=== PATIENT | female | born 1990 | race Caucasian/White ===

== ENCOUNTER 2016-10-29 14:05 | Emergency (ER) | payer BC, OTHER ==
[~2016-10-29] VITALS: Ht 160 cm; Wt 100.0 kg
[~2016-10-29 14:05] MED LIST: CLON.5 PO; IBUP-232 PO; METO25TA3 PO; OMEP20TA PO; VITA500015 PO; ZANTTAB PO; ZOFR4TAB3 SL
[2016-10-29 14:15] VITALS: BP 121/93; PULSE 122; RESP 16; TEMP 98.2; O2SAT 98
[2016-10-29] MEDS ORDERED: SODIUM CHLOR 0.9% 1000 ML INJ 1,000 ML IV ONE ×2 (14:49→16:00)
[2016-10-29] MEDS ORDERED: CLON1 PO (14:49)
[2016-10-29] MEDS ORDERED: [UNRECOGNIZED DRUG - OTHER] (14:49)
[2016-10-29 15:00] LABS: BLOOD, URINE TRACE (NEG); GLUCOSE,URINE NEG (NEG); KETONE, URINE NEG (NEG); NITRITE,URINE NEG (NEG)
[2016-10-29] MEDS ORDERED: SODIUM CHLORIDE 0.9% FLUSH 5 ML FLUSH IVF PRN (15:00)
[2016-10-29] MEDS ORDERED: ONDANSETRON HCL 4 MG/2 ML VIAL IVP ONE (15:00)
--- NOTE | 2016-10-29 15:02 | PD ---
HPI Chief Complaint: GI Complaint Time Seen by Provider: 14:57 Travel History International Travel<30 days: No Contact w/Intl Traveler<30days: No Traveled to known affect area: No History of Present Illness HPI Patient is a 26-year-old female presenting to the emergency room for evaluation of nausea, vomiting, diarrhea. Patient states her symptoms started last night. She denies any abdominal pain, fevers, chills. Patient is recently on 2 and half weeks worth of oral antibiotic therapy due to enlarged tonsils. She stopped the antibiotics approximately one week ago. She states that she has felt nauseated for the last week but the vomiting and diarrhea started yesterday. She states she feels weak and shaky. PFSH Past Medical History Anemia: Yes (BORDERLINE) Anxiety: Yes Depression: Yes Diminished Hearing: No Ulcer: Yes ?: Not LMP: 2 weeks ago : 0 Family History Family Hypercholesterolemia: Yes (FATHER) Social History Alcohol Use: Yes (every other day beer) Tobacco Use: No Substance Use: No Allergies-Medications (Allergen,Severity, Reaction): Coded Allergies: No Known Allergies (Verified , 10/29/16) Reported Meds & Prescriptions Reported Meds & Active Scripts Active Reported [Med For Hr] Klonopin (Clonazepam) 1 Mg Tab 1 Mg PO BID Review of Systems Except as stated in HPI: all other systems reviewed are Neg General / Constitutional: No: Fever, Chills HENT: No: Headaches, Congestion Cardiovascular: No: Chest Pain or Discomfort Respiratory: No: Shortness of Breath Gastrointestinal: Positive: Nausea, Vomiting, Diarrhea, No: Abdominal Pain Genitourinary: No: Dysuria Musculoskeletal: No: Myalgias Neurologic: Positive: Weakness, No: Dizziness, Syncope Physical Exam Narrative GENERAL: Overweight, well-developed, alert female. Resting comfortably in no acute distress. SKIN: Warm and dry. HEAD: Atraumatic. Normocephalic. EYES: Pupils equal and round. No scleral icterus. No injection or drainage. ENT: No nasal bleeding or discharge. Mucous membranes pink and moist. NECK: Trachea midline. No JVD. CARDIOVASCULAR: Regular rate and rhythm. No murmur appreciated. RESPIRATORY: No accessory muscle use. Clear to auscultation. Breath sounds equal bilaterally. GASTROINTESTINAL: Abdomen soft, non-tender, nondistended. Hepatic and splenic margins not palpable. Positive Bowel sounds, no rebound, no guarding. MUSCULOSKELETAL: No obvious deformities. No clubbing. No cyanosis. No edema. NEUROLOGICAL: Awake and alert. No obvious cranial nerve deficits. Motor grossly within normal limits. Normal speech. PSYCHIATRIC: Appropriate mood and affect; insight and judgment normal. Data Data Last Documented VS Vital Signs Date Time Temp Pulse Resp B/P Pulse Ox O2 Delivery O2 Flow Rate FiO2 10/29/16 14:15 98.2 122 16 121/93 98 Orders Urinalysis - C+S If Indicated (10/29/16 14:30) Complete Blood Count With Diff (10/29/16 14:49) Comprehensive Metabolic Panel (10/29/16 14:49) Lipase (10/29/16 14:49) Iv Access Insert/Monitor (10/29/16 14:49) Ondansetron Inj (Zofran Inj) (10/29/16 15:00) Sodium Chlor 0.9% 1000 Ml Inj (Ns 1000 M (10/29/16 14:49) Sodium Chloride 0.9% Flush (Ns Flush) (10/29/16 15:00) Ed Urine Pregnancytest Poc (10/29/16 14:49) C Diff Toxin Pcr (10/29/16 15:09) Sodium Chlor 0.9% 1000 Ml Inj (Ns 1000 M (10/29/16 16:00) Dicyclomine Inj (Bentyl Inj) (10/29/16 16:15) Labs Laboratory Tests Test 10/29/16 10/29/16 14:50 15:00 Urine Collection Type CLEAN CATCH Urine Color YELLOW Urine Turbidity CLEAR Urine pH 6.0 Urine Specific [place] 1.025 Urine Protein 30 mg/dL Urine Glucose (UA) NEG mg/dL Urine Ketones NEG mg/dL Urine Occult Blood TRACE Urine Nitrite NEG Urine Bilirubin NEG Urine Leukocyte Esterase NEG Urine WBC 0-2 /hpf Urine Squamous Epithelial > 8 /hpf Cells Urine Mucus FEW /lpf Urine Yeast (Budding) OCC Microscopic Urinalysis Comment CULT NOT INDICATED Urine Collection Time 14:50 White Blood Count 9.2 TH/MM3 Red Blood Count 4.69 MIL/MM3 Hemoglobin 13.4 GM/DL Hematocrit 39.8 % Mean Corpuscular Volume 84.8 FL Mean Corpuscular Hemoglobin 28.6 PG Mean Corpuscular Hemoglobin 33.7 % Concent Red Cell Distribution Width 12.7 % Platelet Count 286 TH/MM3 Mean Platelet Volume 7.6 FL Neutrophils (%) (Auto) 76.7 % Lymphocytes (%) (Auto) 15.5 % Monocytes (%) (Auto) 7.2 % Eosinophils (%) (Auto) 0.1 % Basophils (%) (Auto) 0.5 % Neutrophils # (Auto) 7.1 TH/MM3 Lymphocytes # (Auto) 1.4 TH/MM3 Monocytes # (Auto) 0.7 TH/MM3 Eosinophils # (Auto) 0.0 TH/MM3 Basophils # (Auto) 0.0 TH/MM3 CBC Comment DIFF FINAL Differential Comment Sodium Level 142 MEQ/L Potassium Level 3.9 MEQ/L Chloride Level 105 MEQ/L Carbon Dioxide Level 27.3 MEQ/L Anion Gap 10 MEQ/L Blood Urea Nitrogen 16 MG/DL Creatinine 0.91 MG/DL Estimat Glomerular Filtration 74 ML/MIN Rate Random Glucose 96 MG/DL Calcium Level 8.8 MG/DL Total Bilirubin 0.3 MG/DL Aspartate Amino Transf 16 U/L (AST/SGOT) Alanine Aminotransferase 47 U/L (ALT/SGPT) Alkaline Phosphatase 60 U/L Total Protein 8.9 GM/DL Albumin 3.9 GM/DL Lipase 102 U/L [facility] Medical Decision Making Medical Screen Exam Complete: Yes Emergency Medical Condition: Yes Interpretation(s) Vital Signs Date Time Temp Pulse Resp B/P Pulse Ox O2 Delivery O2 Flow Rate FiO2 10/29/16 14:15 98.2 122 16 121/93 98 Differential Diagnosis Gastroenteritis versus colitis versus C. difficile versus viral syndrome versus obstruction versus other Narrative Course Patient is a 26-year-old female presenting to the emergency department for evaluation of nausea, vomiting, diarrhea. Labs ordered and pending, IV fluids, Zofran ordered. Stool study ordered and pending. CBC is unremarkable, chemistry is unremarkable, urinalysis is not indicative of urinary tract infection, stool cultures are pending. Patient was given Zofran in the emergency department, she has not had any further vomiting. Bentyl ordered for abdominal cramping. Patient tolerated by mouth challenge. Patient was advised that she would be notified if stool was positive for CDT. Patient has appointment with her primary doctor in the morning, she was encouraged to keep this appointment. Due to current return to emergency department for any new or worsening symptoms. Patient's heart rate was reassessed at 88 prior to discharge. Diagnosis Primary Impression: Nausea vomiting and diarrhea Referrals: Primary Care Physician 1 day Patient Instructions: Acute Diarrhea (GEN), Acute Nausea and Vomiting (ED), General Instructions Additional Instructions: Follow-up with your primary doctor Maintain adequate fluid intake Berkley, low residue diet until symptoms improve Return to emergency department for any new or worsening symptoms Med/Other Pt SpecificInfo: Prescription(s) given Scripts Dicyclomine (Bentyl)20 Mg Tab20 Mg PO TID PRN (Bowel Management) 3 Days Ref 0 Prov:Laurence Mcdowell 10/29/16 Ondansetron Odt (Zofran Odt)4 Mg Tab4 Mg SL Q6HR PRN (Nausea/Vomiting) 3 Days Ref 0 Prov:Laurence Mcdowell 10/29/16 Disposition: 01 DISCHARGE HOME Condition: Stable Laurence Mcdowell Oct 29, 2016 15:01
[2016-10-29 15:12] LABS: AUTOMATED NEUTROPHIL # 7.1 TH/MM3 (1.8-7.7); BASOPHIL % 0.5 % (0.0-2.0); EOSINOPHIL % 0.1 % (0.0-4.0); HEMATOCRIT 39.8 % (35.0-46.0); HEMO FLAGS DIFF FINAL; LYMPH % 15.5 % (9.0-44.0); LYMPHOCYTE # 1.4 TH/MM3 (1.0-4.8); MEAN CELL VOLUME 84.8 FL (80.0-100.0); MEAN CORPUSCULAR HEMOGLOBIN 28.6 PG (27.0-34.0); MEAN CORPUSCULAR HGB CONC 33.7 % (32.0-36.0); MONO % 7.2 % (0.0-8.0); NEUT % 76.7 % (16.0-70.0); PLATELET COUNT 286 TH/MM3 (150-450); RED BLOOD COUNT 4.69 MIL/MM3 (4.00-5.30); RED CELL DISTRIBUTION WIDTH 12.7 % (11.6-17.2); WHITE BLOOD COUNT 9.2 TH/MM3 (4.0-11.0)
[2016-10-29 15:14] LABS: METHOD OF COLLECTION CLEAN CATCH; URINE COLOR YELLOW (YELLW/STRAW)
[2016-10-29 15:15] LABS: MUCUS URINE FEW /lpf (OCC); SQUAMOUS EPITHELIAL CELL URINE > 8 /hpf (0-5); WBC, URINE 0-2 /hpf (0-5)
[2016-10-29 15:16] LABS: COMMENT (UR) CULT NOT INDICATED; CULTURE IF INDICATED CULT NOT INDICATED
[2016-10-29 15:27] LABS: CHLORIDE 105 MEQ/L (98-107); POTASSIUM 3.9 MEQ/L (3.5-5.1); SODIUM (NA) 142 MEQ/L (136-145)
[2016-10-29 15:31] LABS: ANION GAP 10 MEQ/L (5-15); BICARBONATE 27.3 MEQ/L (21.0-32.0); BLOOD UREA NITROGEN 16 MG/DL (7-18)
[2016-10-29 15:33] LABS: ALT (GPT) 47 U/L (10-53)
[2016-10-29 15:34] LABS: AST (GOT) 16 U/L (15-37); GLOMERULAR FILTRATION RATE 74 ML/MIN (>89)
[2016-10-29 15:35] LABS: TOTAL BILIRUBIN ADULT 0.3 MG/DL (0.2-1.0)
[2016-10-29 15:36] LABS: ALKALINE PHOSPHATASE 60 U/L (45-117)
[2016-10-29] MEDS ORDERED: DICYCLOMINE HCL 20 MG/2 ML VIAL IM ONE (16:15)
[2016-10-29] MEDS ORDERED: ZOFR4TAB3 SL (16:59)
[2016-10-29] MEDS ORDERED: BENT20TA PO (16:59)
[2016-10-29 17:07] VITALS: BP 115/71
[2016-10-29 21:36] LABS: C. DIFF EPI 027 PRESUMPTIVE NEGATIVE (NEGATIVE); C. DIFF TOXIN PCR NEGATIVE (NEGATIVE)
== END 2016-10-29 17:10 | disposition home or self-care (01) ==
LOC: PHED 14:05 → PHEFT 17:10
DX: R11.2 Nausea with vomiting, unspecified (principal); R19.7 Diarrhea, unspecified
CPT/HCPCS: 80053; 81001; 83690; 84703; 85025; 87493; 96361; 96372; 96374; 99284; J0500; J2405; J7030

== ENCOUNTER 2016-12-30 19:49 | Emergency (ER) | payer SELFPAY ==
[~2016-12-30] VITALS: Ht 160 cm; Wt 96.0 kg
[~2016-12-30 19:49] MED LIST changes: +BENT20TA PO; -CLON.5 PO; +CLON1 PO; -IBUP-232 PO; -METO25TA3 PO; -OMEP20TA PO; -VITA500015 PO; -ZANTTAB PO; +[UNRECOGNIZED DRUG - OTHER]
[2016-12-30 19:51] VITALS: BP 131/82; PULSE 79; RESP 16; TEMP 98.4; O2SAT 100
[2016-12-30] MEDS ORDERED: ZANT150T2 PO (21:28)
[2016-12-30] MEDS ORDERED: METO25TA3 PO (21:28)
[2016-12-30] MEDS ORDERED: AMOX500T PO (21:28)
--- NOTE | 2016-12-30 21:36 | PD ---
HPI Chief Complaint: ENT Complaint Time Seen by Provider: 21:35 Travel History International Travel<30 days: No Contact w/Intl Traveler<30days: No Traveled to known affect area: No History of Present Illness HPI 26 year old female with PMH of anxiety presents to the ED for evaluation of 1 week history of left ear pain. Radiating to the right evangelical and jaw. Accompanied by nausea. Patient endorses chronic sinus congestion. Patient denies fever, chills, headache, vision changes,rhinorrhea, sore throat, cough, shortness of breath, abdominal pain, vomiting. Patient states she was treated at an outside hospital with amoxicillin and unknown otic drops with no improvement of symptoms. She states that she was told that she had "a gash" inside the ear canal. Denies chronic health problems, takes no daily medications. NKDA. PFSH Past Medical History Anemia: Yes (BORDERLINE) Anxiety: Yes Depression: Yes Heart Rhythm Problems: Yes (Tachycardia) Diminished Hearing: No Ulcer: Yes ?: Not LMP: 12/03/16 : 0 Family History Family Hypercholesterolemia: Yes (FATHER) Social History Alcohol Use: Yes (3x week 6 drinks) Tobacco Use: No Substance Use: No Allergies-Medications (Allergen,Severity, Reaction): Coded Allergies: No Known Allergies (Verified , 12/30/16) Reported Meds & Prescriptions Reported Meds & Active Scripts Active Ibuprofen 800 Mg Tab 800 Mg PO Q8H PRN Ofloxacin Otic Drops 0.3 % Drops 10 Drop LEFT EAR DAILY 7 Days Augmentin (Amoxicillin-Clavulanate) 875-125 mg Tab 875 Mg PO BID 10 Days not for use in CrCl <30 ml/min. Bentyl (Dicyclomine HCl) 20 Mg Tab 20 Mg PO TID PRN 3 Days Reported Zantac (Ranitidine HCl) 150 Mg Tab 150 Mg PO DAILY Amoxicillin 500 Mg Tab Mg PO TID Metoprolol Tartrate 25 Mg Tab 12.5 Mg PO PRN Klonopin (Clonazepam) 1 Mg Tab 1 Mg PO BID Review of Systems Except as stated in HPI: all other systems reviewed are Neg Physical Exam Narrative GENERAL: Well-nourished, well-developed nontoxic-appearing white female in no acute distress. SKIN: Warm and dry. Multiple tattoos. HEAD: Normocephalic. Atraumatic. EYES: No scleral icterus. No injection or drainage. PERRLA. EOMI. ENT: Right-sided tympanic membrane pearly abreu. Left-sided external canal erythematous without discharge. Left-sided tympanic membrane erythematous, retracted, suppurative effusion with loss of landmarks. No evidence of perforation. Nasal mucosa is moist. No tenderness to palpation of the facial sinuses or mastoid bone. Oropharynx without erythema, edema or exudate. Tonsils 2+ bilaterally. Airway patent. NECK: Supple, trachea midline. No JVD or lymphadenopathy. CARDIOVASCULAR: Regular rate and rhythm without murmurs, gallops, or rubs. 2+ DP and radial pulses bilaterally. RESPIRATORY: Breath sounds clear and equal bilaterally. No accessory muscle use. GASTROINTESTINAL: Abdomen soft, non-tender, nondistended. + Bowel sounds MUSCULOSKELETAL: No cyanosis, or edema. Patient is ambulatory and noted to walk with a normal gait. BACK: Nontender without obvious deformity. No CVA tenderness. Data Data Last Documented VS Vital Signs Date Time Temp Pulse Resp B/P Pulse Ox O2 Delivery O2 Flow Rate FiO2 12/30/16 19:51 98.4 79 16 131/82 100 Room Air Orders Amoxicil-Clavulanate (Augmentin) (12/30/16 22:15) Tramadol (Ultram) (12/30/16 22:15) MDM Medical Decision Making Medical Screen Exam Complete: Yes Emergency Medical Condition: Yes Differential Diagnosis Otitis externa versus otitis media versus separative otitis media versus eustachian tube dysfunction versus mastoiditis versus other Narrative Course 26 year old female with PMH of anxiety presents to the ED for evaluation of 1 week history of left ear pain, radiating to the right evangelical and jaw, accompanied by nausea. Patient endorses chronic sinus congestion. Patient denies fever, chills, headache, vision changes,rhinorrhea, sore throat, cough, shortness of breath, abdominal pain, vomiting. Patient states she was treated at an outside hospital with amoxicillin and unknown otic drops with no improvement. Vitals reviewed. Patient is afebrile on presentation. Physical exam reveals left-sided tympanic membrane is erythematous, retracted with a suppurative effusion and loss of bony landmarks. No evidence of perforation. The left external canal is also erythematous without discharge. Nasal mucosa moist. No tenderness to palpation of the facial sinuses or mastoid bone. Oropharynx without erythema, edema or exudate. Tonsils 2+ bilaterally. Airway patent. Floor the mouth is soft. No lymphadenopathy. This is suppurative otitis media and otitis externa. Patient was prescribed Augmentin 875 twice a day. First dose administered in the ED. She was given a dose of tramadol. She is prescribed 800 mg ibuprofen 3 times a day, ofloxacin drops. She is instructed to take all medication as prescribed, avoid water in the ear or putting anything in the ear, follow-up with the primary care or ENT. We discussed reasons to return to the ED. She indicated understanding of the instructions and is agreeable to the care plan. She is stable and discharged home. Diagnosis Primary Impression: Left acute suppurative otitis media Additional Impression: Left otitis externa Qualified Code: H60.62 - Chronic otitis externa of left ear, unspecified type Referrals: Ear / Nose / Throat Specialist Patient Instructions: General Instructions, Otitis Externa (ED), Otitis Media ( ED) Additional Instructions: Rest, hydrate. Push fluids such as sports drinks, Pedialyte, popsicles, clear broth. Amoxicillin every 12 hours 10 days. 800 mg ibuprofen 3 times a day as prescribed to reduce inflammation and pain. Ofloxacin ointment 10 drops instilled in the ear daily. Do not put anything else in the ear. Protect the ear from water. Follow-up with the primary care provider or ENT this week. Return to the ED for worsening of symptoms or any urgent or emergent medical condition. Med/Other Pt SpecificInfo: Prescription(s) given Scripts Ibuprofen 800 Mg [id number] Mg PO Q8H PRN (Pain/Inflammation) #15 TAB Ref 0 Prov:Shaun Nath MD 12/30/16 Ofloxacin Otic Drops 0.3 % Drops10 Drop LEFT EAR DAILY 7 Days Ref 0 Prov:Shaun Nath MD 12/30/16 Amoxicillin-Clavulanate (Augmentin)875-125 mg [id number] Mg PO BID 10 Days Ref 0 not for use in CrCl <30 ml/min. Prov:Shaun Nath MD 12/30/16 Disposition: 01 DISCHARGE HOME Condition: Stable Helena Reynaga Dec 30, 2016 21:36
[2016-12-30] MEDS ORDERED: OFLO0.3D9 LEFT EAR (22:11)
[2016-12-30] MEDS ORDERED: IBUP800T23 PO (22:11)
[2016-12-30] MEDS ORDERED: AUGM875T PO (22:11)
[2016-12-30] MEDS ORDERED: traMADol HCL 50 MG TAB PO ONE (22:15)
[2016-12-30] MEDS ORDERED: AMOXICILLIN/CLAVULANATE K 875 MG TAB PO ONE (22:15)
== END 2016-12-30 23:24 | disposition home or self-care (01) ==
LOC: NEPE 19:49
DX: H66.002 Acute suppurative otitis media without spontaneous rupture of ear drum, left ear (principal); H60.92 Unspecified otitis externa, left ear
CPT/HCPCS: 99282

== ENCOUNTER 2017-04-22 09:51 | Emergency (ER) | payer SELFPAY ==
[~2017-04-22] VITALS: Ht 160 cm; Wt 97.3 kg
[~2017-04-22 09:51] MED LIST changes: +AMOX500T PO; +AUGM875T PO; +IBUP800T23 PO; +METO25TA3 PO; +OFLO0.3D9 LEFT EAR; +ZANT150T2 PO; -ZOFR4TAB3 SL; -[UNRECOGNIZED DRUG - OTHER]
[2017-04-22 10:05] VITALS: BP 146/85; PULSE 106; RESP 18; TEMP 98.2; O2SAT 98
[2017-04-22 10:20] LABS: BLOOD, URINE SMALL (NEG); GLUCOSE,URINE NEG (NEG); KETONE, URINE NEG (NEG); NITRITE,URINE NEG (NEG)
[2017-04-22 10:25] LABS: METHOD OF COLLECTION CLEAN CATCH; URINE COLOR STRAW (YELLW/STRAW)
[2017-04-22 10:26] LABS: CULTURE IF INDICATED CULT NOT INDICATED; SQUAMOUS EPITHELIAL CELL URINE 0-5 /hpf (0-5); WBC, URINE 0-2 /hpf (0-5)
[2017-04-22 10:27] LABS: COMMENT (UR) CULT NOT INDICATED
[2017-04-22] MEDS ORDERED: LORazepam 2 MG/ML VIAL IV PUSH ONE (10:30)
[2017-04-22] MEDS ORDERED: ONDANSETRON HCL 4 MG/2 ML VIAL IV PUSH ONE (10:30)
[2017-04-22] MEDS ORDERED: PANTOPRAZOLE SODIUM 40 MG VIAL IV PUSH ONE (10:30)
--- NOTE | 2017-04-22 10:30 | PD ---
HPI Chief Complaint: Abdominal Pain Time Seen by Provider: 10:10 Travel History International Travel<30 days: No Contact w/Intl Traveler<30days: No Traveled to known affect area: No History of Present Illness HPI 27yo F with PMH of anxiety presents with multiple complaints today. Pt states she has pain from her midchest down to her suprapubic region since yesterday. Pain is sharp. +Nausea and NBNB vomiting. +Vaginal discharge that is white. States her breasts has been hurting for 1 week, mainly where the nipples are. Denies any nipple discharge, family history of breast cancer. States pain in her chest but mainly is under her left breast where the ribs are. Denies any fever, cough, trauma, sob, dysuria, hematuria, focal weakness or numbness. Pt takes klonopin for anxiety and does feel anxious. PFSH Past Medical History Anemia: Yes (BORDERLINE) Anxiety: Yes Depression: Yes Heart Rhythm Problems: Yes (Tachycardia) Diminished Hearing: No Ulcer: Yes Tetanus Vaccination: < 5 Years ?: Not : 0 Family History Family Hypercholesterolemia: Yes (FATHER) Social History Alcohol Use: Yes (3x week 6 drinks) Tobacco Use: No Substance Use: No Allergies-Medications (Allergen,Severity, Reaction): Coded Allergies: No Known Allergies (Verified , 04/22/17) Reported Meds & Prescriptions Reported Meds & Active Scripts Active Reported Klonopin (Clonazepam) 1 Mg Tab 1 Mg PO BID Review of Systems Except as stated in HPI: all other systems reviewed are Neg Physical Exam Narrative GENERAL: 27yo F not in distress. SKIN: Focused skin assessment warm/dry. HEAD: Atraumatic. Normocephalic. EYES: Pupils equal and round. No scleral icterus. No injection or drainage. ENT: No nasal bleeding or discharge. Mucous membranes pink and moist. NECK: Trachea midline. No JVD. CARDIOVASCULAR: Regular rate and rhythm. No murmur appreciated. RESPIRATORY: No accessory muscle use. Clear to auscultation. Breath sounds equal bilaterally. GASTROINTESTINAL: Abdomen soft, +Suprapubic ttp. +LUQ ttp. No rebound tenderness or guarding. PELVIC: +Yellow discharge. Fishy smell. No CMT or adnexal tenderness bilaterally. MUSCULOSKELETAL: No obvious deformities. No clubbing. No cyanosis. No edema. NEUROLOGICAL: Awake and alert. No obvious cranial nerve deficits. Motor grossly within normal limits. Normal speech. PSYCHIATRIC: Appropriate mood and affect; insight and judgment normal. Data Data Last Documented VS Vital Signs Date Time Temp Pulse Resp B/P Pulse Ox O2 Delivery O2 Flow Rate FiO2 04/22/17 10:05 98.2 106 18 146/85 98 Orders Urinalysis - C+S If Indicated (04/22/17 09:59) Ed Urine Pregnancytest Poc (04/22/17 10:21) Complete Blood Count With Diff (04/22/17 10:21) Comprehensive Metabolic Panel (04/22/17 10:21) Ondansetron Inj (Zofran Inj) (04/22/17 10:30) Pantoprazole Inj (Protonix Inj) (04/22/17 10:30) Electrocardiogram (04/22/17 ) Chest, Single Ap (04/22/17 ) Lorazepam Inj (Ativan Inj) (04/22/17 10:30) Gc And Chlamydia Pcr (04/22/17 10:30) Wet Prep Profile (04/22/17 10:30) Labs Laboratory Tests Test 04/22/17 04/22/17 04/22/17 10:08 10:25 11:49 Urine Collection Type CLEAN CATCH Urine Color STRAW Urine Turbidity CLEAR Urine pH 6.0 Urine Specific [place] 1.009 Urine Protein NEG mg/dL Urine Glucose (UA) NEG mg/dL Urine Ketones NEG mg/dL Urine Occult Blood SMALL Urine Nitrite NEG Urine Bilirubin NEG Urine Leukocyte Esterase NEG Urine RBC 4-9 /hpf Urine WBC 0-2 /hpf Urine Squamous Epithelial 0-5 /hpf Cells Urine Amorphous Sediment FEW Microscopic Urinalysis Comment CULT NOT INDICATED Urine Collection Time 1008 White Blood Count 7.9 TH/MM3 Red Blood Count 4.46 MIL/MM3 Hemoglobin 12.9 GM/DL Hematocrit 38.7 % Mean Corpuscular Volume 86.7 FL Mean Corpuscular Hemoglobin 29.0 PG Mean Corpuscular Hemoglobin 33.5 % Concent Red Cell Distribution Width 12.8 % Platelet Count 255 TH/MM3 Mean Platelet Volume 7.8 FL Neutrophils (%) (Auto) 64.1 % Lymphocytes (%) (Auto) 26.6 % Monocytes (%) (Auto) 6.2 % Eosinophils (%) (Auto) 0.7 % Basophils (%) (Auto) 2.4 % Neutrophils # (Auto) 5.0 TH/MM3 Lymphocytes # (Auto) 2.1 TH/MM3 Monocytes # (Auto) 0.5 TH/MM3 Eosinophils # (Auto) 0.1 TH/MM3 Basophils # (Auto) 0.2 TH/MM3 CBC Comment DIFF FINAL Differential Comment Sodium Level 139 MEQ/L Potassium Level 3.7 MEQ/L Chloride Level 106 MEQ/L Carbon Dioxide Level 23.9 MEQ/L Anion Gap 9 MEQ/L Blood Urea Nitrogen 15 MG/DL Creatinine 0.78 MG/DL Estimat Glomerular Filtration 87 ML/MIN Rate Random Glucose 100 MG/DL Calcium Level 9.2 MG/DL Total Bilirubin 0.4 MG/DL Aspartate Amino Transf 15 U/L (AST/SGOT) Alanine Aminotransferase 37 U/L (ALT/SGPT) Alkaline Phosphatase 70 U/L Total Protein 8.7 GM/DL Albumin 3.8 GM/DL Clue Cells (Wet Prep) PRESENT Vaginal Trichomonas (Wet Prep) NONE SEEN Vaginal Yeast (Wet Prep) NONE SEEN MDM Medical Decision Making Medical Screen Exam Complete: Yes Emergency Medical Condition: Yes Interpretation(s) EKG: NSR 96bpm. Normal axis. No ST segment elevation or depression. Laboratory Tests Test 04/22/17 04/22/17 04/22/17 10:08 10:25 11:49 Urine Collection Type CLEAN CATCH Urine Color STRAW (YELLW/STRAW) Urine Turbidity CLEAR (CLEAR) Urine pH 6.0 (5.0-8.5) Urine Specific [place] 1.009 (1.002-1.035) Urine Protein NEG mg/dL (NEG-TRACE) Urine Glucose (UA) NEG mg/dL (NEG) Urine Ketones NEG mg/dL (NEG) Urine Occult Blood SMALL (NEG) Urine Nitrite NEG (NEG) Urine Bilirubin NEG (NEG) Urine Leukocyte Esterase NEG (NEG) Urine RBC 4-9 /hpf (0-3) Urine WBC 0-2 /hpf (0-5) Urine Squamous Epithelial 0-5 /hpf (0-5) Cells Urine Amorphous Sediment FEW Microscopic Urinalysis Comment CULT NOT INDICATED Urine Collection Time 1008 White Blood Count 7.9 TH/MM3 (4.0-11.0) Red Blood Count 4.46 MIL/MM3 (4.00-5.30) Hemoglobin 12.9 GM/DL (11.6-15.3) Hematocrit 38.7 % (35.0-46.0) Mean Corpuscular Volume 86.7 FL (80.0-100.0) Mean Corpuscular Hemoglobin 29.0 PG (27.0-34.0) Mean Corpuscular Hemoglobin 33.5 % Concent (32.0-36.0) Red Cell Distribution Width 12.8 % (11.6-17.2) Platelet Count 255 TH/MM3 (150-450) Mean Platelet Volume 7.8 FL (7.0-11.0) Neutrophils (%) (Auto) 64.1 % (16.0-70.0) Lymphocytes (%) (Auto) 26.6 % (9.0-44.0) Monocytes (%) (Auto) 6.2 % (0.0-8.0) Eosinophils (%) (Auto) 0.7 % (0.0-4.0) Basophils (%) (Auto) 2.4 % (0.0-2.0) Neutrophils # (Auto) 5.0 TH/MM3 (1.8-7.7) Lymphocytes # (Auto) 2.1 TH/MM3 (1.0-4.8) Monocytes # (Auto) 0.5 TH/MM3 (0-0.9) Eosinophils # (Auto) 0.1 TH/MM3 (0-0.4) Basophils # (Auto) 0.2 TH/MM3 (0-0.2) CBC Comment DIFF FINAL Differential Comment Sodium Level 139 MEQ/L (136-145) Potassium Level 3.7 MEQ/L (3.5-5.1) Chloride Level 106 MEQ/L (98-107) Carbon Dioxide Level 23.9 MEQ/L (21.0-32.0) Anion Gap 9 MEQ/L (5-15) Blood Urea Nitrogen 15 MG/DL (7-18) Creatinine 0.78 MG/DL (0.50-1.00) Estimat Glomerular Filtration 87 ML/MIN (>89) Rate Random Glucose 100 MG/DL (74-106) Calcium Level 9.2 MG/DL (8.5-10.1) Total Bilirubin 0.4 MG/DL (0.2-1.0) Aspartate Amino Transf 15 U/L (15-37) (AST/SGOT) Alanine Aminotransferase 37 U/L (10-53) (ALT/SGPT) Alkaline Phosphatase 70 U/L (45-117) Total Protein 8.7 GM/DL (6.4-8.2) Albumin 3.8 GM/DL (3.4-5.0) Clue Cells (Wet Prep) PRESENT (NONE) Vaginal Trichomonas (Wet Prep) NONE SEEN (NONE) Vaginal Yeast (Wet Prep) NONE SEEN (NONE) Last Impressions Chest X-Ray 04/22/17 0000 Signed Impressions: Service Date/Time: Saturday, April 22, 2017 10:35 - CONCLUSION: No acute cardiopulmonary abnormality is identified. Issac Lozano MD Differential Diagnosis Cystitis vs. Bacterial vaginosis vs. Gonorrhea vs. chlamydia Narrative Course 27yo F with multiple complaints. Pt mainly have pelvic pain and vaginal discharge. Pt also with atypical chest pain that is more breast pain but not tender on bilateral breasts on my exam. CXR showed no acute cardiopulmonary abnormality. Labs reviewed, no leukocytosis. CMP unremarkable. Wet prep positive for clue cell. Pt given ativan, pantoprazole and zofran and reevaluated at bedside. Abdomen is now soft, NT/ND. No longer nauseous. Return precautions given. Diagnosis Primary Impression: Bacterial vaginosis Patient Instructions: General Instructions Departure Forms: Tests/Procedures Additional Instructions: Please follow up with your PMD in 3-7 days. Return to the ED if symptoms worsen. Please follow up with your PMD for further testing of her breast pains if it persists. Med/Other Pt SpecificInfo: Prescription(s) given Scripts Metronidazole 500 Mg [id number] Mg PO BID 7 Days Ref 0 Prov:LuiMarj 04/22/17 Disposition: 01 DISCHARGE HOME Condition: Stable Marj Lui DO Apr 22, 2017 10:30
--- NOTE | 2017-04-22 10:44 | RADRPT ---
EXAM DATE/TIME: 04/22/2017 10:35 [facility] COMPARISON: CHEST PA & LAT, December 20, 2015, 16:20. INDICATIONS : Chest pain, abdominal pain, vomiting. MEDICAL HISTORY : Ulcers. Tachycardia. Anemia. SURGICAL HISTORY : Right wrist. ENCOUNTER: Initial ACUITY: 1 week PAIN SCORE: 7/10 LOCATION: chest FINDINGS: Portable AP view of the chest demonstrates a normal-sized cardiac silhouette. No effusion, consolidat ion, or pneumothorax is visualized. The bones and soft tissues demonstrate no acute abnormality. CONCLUSION: No acute cardiopulmonary abnormality is identified. Issac Lozano MD on April 22, 2017 at 10:42 Board Certified Radiologist. This report was verified electronically.
[2017-04-22 10:47] LABS: BASOPHIL # 0.2 TH/MM3 (0-0.2); BASOPHIL % 2.4 % (0.0-2.0); EOSINOPHIL # 0.1 TH/MM3 (0-0.4); EOSINOPHIL % 0.7 % (0.0-4.0); HEMATOCRIT 38.7 % (35.0-46.0); HEMO FLAGS DIFF FINAL; LYMPH % 26.6 % (9.0-44.0); LYMPHOCYTE # 2.1 TH/MM3 (1.0-4.8); MEAN CELL VOLUME 86.7 FL (80.0-100.0); MEAN CORPUSCULAR HGB CONC 33.5 % (32.0-36.0); MONO % 6.2 % (0.0-8.0); NEUT % 64.1 % (16.0-70.0); PLATELET COUNT 255 TH/MM3 (150-450); RED BLOOD COUNT 4.46 MIL/MM3 (4.00-5.30); RED CELL DISTRIBUTION WIDTH 12.8 % (11.6-17.2); WHITE BLOOD COUNT 7.9 TH/MM3 (4.0-11.0)
[2017-04-22 10:53] LABS: CHLORIDE 106 MEQ/L (98-107); POTASSIUM 3.7 MEQ/L (3.5-5.1); SODIUM (NA) 139 MEQ/L (136-145)
[2017-04-22 10:57] LABS: ANION GAP 9 MEQ/L (5-15); BICARBONATE 23.9 MEQ/L (21.0-32.0); BLOOD UREA NITROGEN 15 MG/DL (7-18)
[2017-04-22 11:00] LABS: ALT (GPT) 37 U/L (10-53); AST (GOT) 15 U/L (15-37); GLOMERULAR FILTRATION RATE 87 ML/MIN (>89)
[2017-04-22 11:02] LABS: TOTAL BILIRUBIN ADULT 0.4 MG/DL (0.2-1.0)
[2017-04-22 11:03] LABS: ALKALINE PHOSPHATASE 70 U/L (45-117)
[2017-04-22 12:30] VITALS: BP 116/55
[2017-04-22] MEDS ORDERED: METR500T10 PO (12:33)
--- NOTE | 2017-04-22 13:52 | EKG ---
Date Performed: 04/22/2017 Time Performed: 10:43:47 PTAGE: 27 years EKG: Sinus rhythm Since previous tracing, no significant change noted NORMAL ECG PREVIOUS TRACING : 12/20/2015 16.26 DOCTOR: Jayant Landry Interpretating Date/Time 04/22/2017 13:51:16
[2017-04-22 17:06] LABS: CHLAMYDIA PCR NOT DETECTED (NOT DETECT); NEISSERIA PCR NOT DETECTED (NOT DETECT)
== END 2017-04-22 12:38 | disposition home or self-care (01) ==
LOC: PHED 09:51
DX: N76.0 Acute vaginitis (principal); R00.0 Tachycardia, unspecified
CPT/HCPCS: 71010; 80053; 81001; 84703; 85025; 87210; 87491; 87591; 93005; 96374; 96375; 99284; C9113; J2060; J2405

== ENCOUNTER 2017-07-01 12:09 | Emergency (ER) | payer SELFPAY ==
[~2017-07-01] VITALS: Ht 160 cm; Wt 100.0 kg
[~2017-07-01 12:09] MED LIST changes: -AMOX500T PO; -AUGM875T PO; -BENT20TA PO; -IBUP800T23 PO; -METO25TA3 PO; +METR500T10 PO; -OFLO0.3D9 LEFT EAR; -ZANT150T2 PO
[2017-07-01 12:11] VITALS: BP 146/93; PULSE 104; RESP 14; TEMP 98.8; O2SAT 99
--- NOTE | 2017-07-01 12:15 | PD ---
Physical Exam Date Seen by Provider: Jul 01, 2017 Time Seen by Provider: 12:14 Narrative 27 yo female here for possible accidental overdose on Klonipin. Per patient she took "too many" of her klonopin. Feels depressed and hopeless. When asked if on purpose, she says no. Feels suicidal. No other medical issues at this time. Brought by family. Vitals are stable in triage except for slight tachycardia. Awaiting bed placement. Data Data Last Documented VS Vital Signs Date Time Temp Pulse Resp B/P (MAP) Pulse Ox O2 Delivery O2 Flow Rate FiO2 07/01/17 12:11 98.8 104 14 146/93 (110) 99 Room Air Orders Orders Complete Blood Count With Diff (07/01/17 12:13) Comprehensive Metabolic Panel (07/01/17 12:13) Electrocardiogram (07/01/17 12:13) Psych Screen (07/01/17 12:13) Drug Screen, Random Urine (07/01/17 12:13) Alcohol (Ethanol) (07/01/17 12:13) Salicylates (Aspirin) (07/01/17 12:13) Tylenol (Acetaminophen) (07/01/17 12:13) MDM Medical Record Reviewed: Yes Supervised Visit with COREY: No Kunal Block Jul 01, 2017 12:15
--- NOTE | 2017-07-01 12:24 | PD ---
HPI Chief Complaint: OD/ Ingestion Time Seen by Provider: 12:20 Travel History International Travel<30 days: No Contact w/Intl Traveler<30days: No Traveled to known affect area: No History of Present Illness HPI 27 YO F with PMH of bipolar, schizophrenia, depression, PTSD presents to the ED for voluntary psychiatric evaluation. The patient states that she got in an argument today which increased her anxiety. She states that she punched a wall and she took 5 mg of Klonopin. She states that she did this half in an attempt to calm down and half in an attempt to harm herself. She also states that she made superficial cuts on her left wrist today in an attempt to harm herself. She states that she has not seen a psychiatrist in months and has not taken any psychiatric medications for over 7 months. Klonopin is prescribed by her primary care provider, Dr. Reyes. She complains of left-sided headache on presentation. She endorses history of similar, chronic headaches. She endorses sharp pain in the left side and mild nausea. She denies vision changes or dizziness. She normally takes ibuprofen at home for these headaches. Also complains of pain in the right hand. Denies numbness, tingling , weakness, limitations to range of motion of the extremity. No other somatic complaints. Last tetanus immunization 2011. LOCATION:right hand QUALITY: constant SEVERITY: 03/01 TIMING: since this AM DURATION: a few hours MODIFYING FACTORS: none ASSOCIATED TIME AND SYMPTOMS: none PFSH Past Medical History Anemia: Yes (BORDERLINE) Anxiety: Yes Depression: Yes Heart Rhythm Problems: Yes (Tachycardia) Diminished Hearing: No Ulcer: Yes ?: Not LMP: 06/16/17 : 0 Family History Family Hypercholesterolemia: Yes (FATHER) Social History Alcohol Use: Yes (3x week 6 drinks) Tobacco Use: No Substance Use: No Allergies-Medications (Allergen,Severity, Reaction): Coded Allergies: No Known Allergies (Verified , 04/22/17) Reported Meds & Prescriptions Reported Meds & Active Scripts Active Metronidazole 500 Mg Tab 500 Mg PO BID 7 Days Reported Klonopin (Clonazepam) 1 Mg Tab 1 Mg PO BID Review of Systems Except as stated in HPI: all other systems reviewed are Neg Physical Exam Narrative GENERAL: Well-nourished, well-developed obese white female no acute distress. Alert, oriented. SKIN: Focused skin assessment warm/dry. Several superficial, linear lacerations over the left anterior wrist. HEAD: Normocephalic. EYES: No scleral icterus. No injection or drainage. NECK: Supple, trachea midline. No JVD or lymphadenopathy. CARDIOVASCULAR: Regular rate and rhythm without murmurs, gallops, or rubs. RESPIRATORY: Breath sounds clear and equal bilaterally. No accessory muscle use. GASTROINTESTINAL: Abdomen soft, non-tender, nondistended. Active bowel sounds MUSCULOSKELETAL: No cyanosis, or edema. FOCUSED RIGHT UPPER EXTREMITY EXAM: 2+ radial pulse. Tender ecchymosis over the third fourth and fifth MP joints. Patient retains full, active, painless ROM of the joints of the hand and wrist. Neurovascularly intact distally. NEUROLOGICAL: Awake and alert. Cranial nerves II through XII intact. Motor and sensory grossly within normal limits. Five out of 5 muscle strength in all muscle groups. Normal speech. BACK: Nontender without obvious deformity. No CVA tenderness. Data Data Last Documented VS Vital Signs Date Time Temp Pulse Resp B/P (MAP) Pulse Ox O2 Delivery O2 Flow Rate FiO2 07/01/17 12:58 92 21 131/77 (95) 95 Room Air 07/01/17 12:11 98.8 Orders Orders Complete Blood Count With Diff (07/01/17 12:13) Comprehensive Metabolic Panel (07/01/17 12:13) Electrocardiogram (07/01/17 12:13) Psych Screen (07/01/17 12:13) Drug Screen, Random Urine (07/01/17 12:13) Alcohol (Ethanol) (07/01/17 12:13) Salicylates (Aspirin) (07/01/17 12:13) Tylenol (Acetaminophen) (07/01/17 12:13) Diphenhydramine Inj (Benadryl Inj) (07/01/17 12:45) Methylprednisolone So Succ Inj (Solumedr (07/01/17 12:45) Famotidine Inj (Pepcid Inj) (07/01/17 12:45) Sodium Chloride 0.9% Flush (Ns Flush) (07/01/17 12:45) Hand, Complete ([id number]) (07/01/17 12:46) Ice/Cold Pack (07/01/17 12:46) Ibuprofen (Motrin) (07/01/17 13:00) Call Poison Control (07/01/17 13:22) Labs Laboratory Tests Test 07/01/17 13:15 07/01/17 15:20 White Blood Count 8.9 TH/MM3 Red Blood Count 4.40 MIL/MM3 Hemoglobin 12.9 GM/DL Hematocrit 39.3 % Mean Corpuscular Volume 89.2 FL Mean Corpuscular Hemoglobin 29.3 PG Mean Corpuscular Hemoglobin Concent 32.9 % Red Cell Distribution Width 13.5 % Platelet Count 250 TH/MM3 Mean Platelet Volume 7.6 FL Neutrophils (%) (Auto) 75.7 % Lymphocytes (%) (Auto) 17.4 % Monocytes (%) (Auto) 6.3 % Eosinophils (%) (Auto) 0.4 % Basophils (%) (Auto) 0.2 % Neutrophils # (Auto) 6.7 TH/MM3 Lymphocytes # (Auto) 1.5 TH/MM3 Monocytes # (Auto) 0.6 TH/MM3 Eosinophils # (Auto) 0.0 TH/MM3 Basophils # (Auto) 0.0 TH/MM3 CBC Comment DIFF FINAL Differential Comment Blood Urea Nitrogen 11 MG/DL Creatinine 0.76 MG/DL Random Glucose 98 MG/DL Total Protein 8.6 GM/DL Albumin 3.8 GM/DL Calcium Level 9.1 MG/DL Alkaline Phosphatase 64 U/L Aspartate Amino Transf (AST/SGOT) 19 U/L Alanine Aminotransferase (ALT/SGPT) 40 U/L Total Bilirubin 0.2 MG/DL Sodium Level 138 MEQ/L Potassium Level 4.1 MEQ/L Chloride Level 106 MEQ/L Carbon Dioxide Level 23.9 MEQ/L Anion Gap 8 MEQ/L Estimat Glomerular Filtration Rate 90 ML/MIN Salicylates Level LESS THAN 1.7 MG/DL Acetaminophen Level LESS THAN 2.0 MCG/ML Ethyl Alcohol Level LESS THAN 3 MG/DL Urine Opiates Screen NEG Urine Barbiturates Screen NEG Urine Amphetamines Screen NEG Urine Benzodiazepines Screen POS Urine Cocaine Screen NEG Urine Cannabinoids Screen NEG MDM Medical Decision Making Medical Screen Exam Complete: Yes Emergency Medical Condition: Yes Differential Diagnosis contusion versus boxers fracture versus cephalgia versus Adjustment disorder versus anxiety versus bipolar versus depression versus dementia versus electrolyte disorder versus malingering versus mood disorder versus ODD versus psychosis versus PTSD versus schizophrenia versus schizoaffective disorder versus substance-induced mood disorder versus other Narrative Course 27 YO F with PMH of bipolar, schizophrenia, depression, PTSD presents to the ED for voluntary psychiatric evaluation. The patient states that she got in an argument today which increased her anxiety. She states that she punched a wall and she took 5 mg of Klonopin. She states that she did this half in an attempt to calm down and half in an attempt to harm herself. She also states that she made superficial cuts on her left wrist today in an attempt to harm herself. She endorses 8/10 sharp pain in the left sided headache and mild nausea. Similar to chronic headaches in the past. She denies vision changes or dizziness. Also complains of pain in the right hand. Denies numbness, tingling , weakness, limitations to range of motion of the extremity. No other somatic complaints. Last tetanus immunization 2011. Vitals reviewed. On exam patient is alert, oriented. She has some bruising over the third fourth and fifth metacarpals of the right hand but the exam is otherwise reassuring. Poison control was contacted, recommended lab work and observation. She was administered 800mg Ibuprofen. Ice pack was applied to the hand. Pain 5/10 on recheck. EKG: rate 89, sinus rhythm. MI interval 189, QRS 73, QTC 396 ms. Normal axis. No acute ST changes. Reviewed by Dr. Gerber. RIGHT HAND XRAY: no acute fracture or dislocation per radiology read. No concerning abnormalities a CBC, CMP. Tox screen positive for benzodiazepines. Alcohol less than 3. The patient is medically cleared for psychiatric evaluation. Awaiting psychiatric recommendations. Diagnosis Primary Impression: Medical clearance for psychiatric admission Additional Impressions: Cephalalgia Qualified Codes: R51 - Headache Contusion of right hand, initial encounter Helena Reynaga Jul 01, 2017 12:24
[2017-07-01] MEDS ORDERED: SODIUM CHLORIDE 0.9% FLUSH 10 ML FLUSH IV FLUSH PRN (12:45)
[2017-07-01] MEDS ORDERED: FAMOTIDINE 20 MG/2 ML VIAL IV PUSH ONE (12:45)
[2017-07-01] MEDS ORDERED: methylPREDNISolone SOD SUCC 125 MG/2 ML VIAL IV PUSH ONE (12:45)
[2017-07-01] MEDS ORDERED: diphenhydrAMINE HCL 50 MG/ML VIAL IVP ONE (12:45)
[2017-07-01 12:58] VITALS: BP 131/77; PULSE 92; RESP 21; O2SAT 95
[2017-07-01] MEDS ORDERED: IBUPROFEN 800 MG TAB PO ONE (13:00)
--- NOTE | 2017-07-01 13:42 | RADRPT ---
EXAM DATE/TIME: 07/01/2017 12:52 [facility] COMPARISON: HAND RIGHT COMPLETE ([id number]), December 20, 2015, 16:56. INDICATIONS : Right hand pain in fourth and fifth digit after punching a wall. MEDICAL HISTORY : Ulcers. Tachycardia. Anemia. SURGICAL HISTORY : Right wrist ORIF. ENCOUNTER: Initial ACUITY: 1 day PAIN SCORE: 10/10 LOCATION: Right hand FINDINGS: Soft tissue swelling is identified along the dorsum of the hand overlying the metacarpophalangeal buddy nts. Bony structures are intact without evidence of fracture or dislocation. Extra medullary plate remains evident in the distal radius. CONCLUSION: No evidence of acute fracture or dislocation. Malik Viveros MD on July 01, 2017 at 13:39 Board Certified Radiologist. This report was verified electronically.
[2017-07-01 13:48] LABS: AUTOMATED NEUTROPHIL # 6.7 TH/MM3 (1.8-7.7); BASOPHIL % 0.2 % (0.0-2.0); EOSINOPHIL % 0.4 % (0.0-4.0); HEMATOCRIT 39.3 % (35.0-46.0); HEMO FLAGS DIFF FINAL; LYMPH % 17.4 % (9.0-44.0); LYMPHOCYTE # 1.5 TH/MM3 (1.0-4.8); MEAN CELL VOLUME 89.2 FL (80.0-100.0); MEAN CORPUSCULAR HEMOGLOBIN 29.3 PG (27.0-34.0); MEAN CORPUSCULAR HGB CONC 32.9 % (32.0-36.0); MONO % 6.3 % (0.0-8.0); NEUT % 75.7 % (16.0-70.0); PLATELET COUNT 250 TH/MM3 (150-450); RED CELL DISTRIBUTION WIDTH 13.5 % (11.6-17.2); WHITE BLOOD COUNT 8.9 TH/MM3 (4.0-11.0)
[2017-07-01 14:10] LABS: ALT (GPT) 40 U/L (10-53); ANION GAP 8 MEQ/L (5-15); AST (GOT) 19 U/L (15-37); BICARBONATE 23.9 MEQ/L (21.0-32.0); BLOOD UREA NITROGEN 11 MG/DL (7-18); CHLORIDE 106 MEQ/L (98-107); GLOMERULAR FILTRATION RATE 90 ML/MIN (>89); POTASSIUM 4.1 MEQ/L (3.5-5.1); SODIUM (NA) 138 MEQ/L (136-145)
[2017-07-01 14:12] LABS: ALKALINE PHOSPHATASE 64 U/L (45-117); TOTAL BILIRUBIN ADULT 0.2 MG/DL (0.2-1.0)
[2017-07-01 14:14] LABS: ACETAMINOPHEN LESS THAN 2.0 MCG/ML (10.0-30.0); ALCOHOL LESS THAN 3 MG/DL (0-5)
[2017-07-01 17:26] VITALS: BP 132/77; PULSE 81; RESP 18; O2SAT 100
[2017-07-02 06:14] VITALS: BP 123/80; PULSE 73; RESP 18; O2SAT 100
--- NOTE | 2017-07-02 09:26 | PD ---
Physical Exam Date Seen by Provider: Jul 02, 2017 Time Seen by Provider: 09:25 Narrative 27-year-old female previously medically cleared for psychiatric evaluation for history of bipolar and mood disorder. Patient has been psychiatrically cleared by psychiatric staff for discharge. Patient remains medically stable for discharge. Please see psychiatrist note for follow-up plan. Data Data Last Documented VS Vital Signs Date Time Temp Pulse Resp B/P (MAP) Pulse Ox O2 Delivery O2 Flow Rate FiO2 07/02/17 06:14 73 18 123/80 (94) 100 Room Air 07/01/17 12:11 98.8 Orders Orders Complete Blood Count With Diff (07/01/17 12:13) Comprehensive Metabolic Panel (07/01/17 12:13) Electrocardiogram (07/01/17 12:13) Psych Screen (07/01/17 12:13) Drug Screen, Random Urine (07/01/17 12:13) Alcohol (Ethanol) (07/01/17 12:13) Salicylates (Aspirin) (07/01/17 12:13) Tylenol (Acetaminophen) (07/01/17 12:13) Diphenhydramine Inj (Benadryl Inj) (07/01/17 12:45) Methylprednisolone So Succ Inj (Solumedr (07/01/17 12:45) Famotidine Inj (Pepcid Inj) (07/01/17 12:45) Sodium Chloride 0.9% Flush (Ns Flush) (07/01/17 12:45) Hand, Complete (Sru2rgb) (07/01/17 12:46) Ice/Cold Pack (07/01/17 12:46) Ibuprofen (Motrin) (07/01/17 13:00) Call Poison Control (07/01/17 13:22) Diet Regular Basic (07/01/17 Dinner) Ed Discharge Order (07/02/17 09:23) Labs Laboratory Tests Test 07/01/17 13:15 07/01/17 15:20 White Blood Count 8.9 TH/MM3 Red Blood Count 4.40 MIL/MM3 Hemoglobin 12.9 GM/DL Hematocrit 39.3 % Mean Corpuscular Volume 89.2 FL Mean Corpuscular Hemoglobin 29.3 PG Mean Corpuscular Hemoglobin Concent 32.9 % Red Cell Distribution Width 13.5 % Platelet Count 250 TH/MM3 Mean Platelet Volume 7.6 FL Neutrophils (%) (Auto) 75.7 % Lymphocytes (%) (Auto) 17.4 % Monocytes (%) (Auto) 6.3 % Eosinophils (%) (Auto) 0.4 % Basophils (%) (Auto) 0.2 % Neutrophils # (Auto) 6.7 TH/MM3 Lymphocytes # (Auto) 1.5 TH/MM3 Monocytes # (Auto) 0.6 TH/MM3 Eosinophils # (Auto) 0.0 TH/MM3 Basophils # (Auto) 0.0 TH/MM3 CBC Comment DIFF FINAL Differential Comment Blood Urea Nitrogen 11 MG/DL Creatinine 0.76 MG/DL Random Glucose 98 MG/DL Total Protein 8.6 GM/DL Albumin 3.8 GM/DL Calcium Level 9.1 MG/DL Alkaline Phosphatase 64 U/L Aspartate Amino Transf (AST/SGOT) 19 U/L Alanine Aminotransferase (ALT/SGPT) 40 U/L Total Bilirubin 0.2 MG/DL Sodium Level 138 MEQ/L Potassium Level 4.1 MEQ/L Chloride Level 106 MEQ/L Carbon Dioxide Level 23.9 MEQ/L Anion Gap 8 MEQ/L Estimat Glomerular Filtration Rate 90 ML/MIN Salicylates Level LESS THAN 1.7 MG/DL Acetaminophen Level LESS THAN 2.0 MCG/ML Ethyl Alcohol Level LESS THAN 3 MG/DL Urine Opiates Screen NEG Urine Barbiturates Screen NEG Urine Amphetamines Screen NEG Urine Benzodiazepines Screen POS Urine Cocaine Screen NEG Urine Cannabinoids Screen NEG MDM Medical Record Reviewed: Yes Supervised Visit with COREY: Yes Narrative Course 27-year-old female previously medically cleared for psychiatric evaluation for history of bipolar and mood disorder. Patient has been psychiatrically cleared by psychiatric staff for discharge. Patient remains medically stable for discharge. Please see psychiatrist note for follow-up plan. Diagnosis Primary Impression: Medical clearance for psychiatric admission Additional Impressions: Cephalalgia Qualified Codes: R51 - Headache Contusion of right hand, initial encounter Patient Instructions: General Instructions Disposition: 01 DISCHARGE HOME Condition: Stable Minh Martin Jul 02, 2017 09:26
--- NOTE | 2017-07-02 12:30 | PD ---
History of Present Illness Chief Complaint: OD/ Ingestion Time Seen by Provider: 08:45 Travel History International Travel<30 Days: No Contact w/Intl Traveler<30days: No Known affected area: No Legal Status Legal Status: Gomez Act Gomez Act Signed By: MARIANN LARSON History of Present Illness: 27-year-old female sitting under a Gomez act instituted by [place] ED physician after patient overdosed on Klonopin. Patient states she took twice the number of her usual dose of Klonopin because she was having a panic attack. She denies any suicide attempt or self inflicted purposeful scratches on her arms. She is currently denying any suicidal or homicidal ideation, plan or intent. She has no psychotic symptoms and her cognition is intact. She is verbally toney for safety and would like to go home. She is not positive for other drugs or alcohol. PFSH Past Medical History Anemia: Yes (BORDERLINE) Bipolar Disorder: Yes Anxiety: Yes Depression: Yes Heart Rhythm Problems: Yes (Tachycardia) Diminished Hearing: No Psychiatric: Yes (PTSD) Ulcer: Yes Tetanus Vaccination: < 5 Years Influenza Vaccination: No ?: Not LMP: 06/16/17 : 0 Psychiatric History Psychiatric History Hx Psychiatric Treatment: BiPolar Disorder, Severe Anxiety, Anger issues, PTSD. This physician does not currently see any significant clinically objective evidence of bipolar disorder or PTSD at this time. History of Inpatient Treatment: No Guns or firearms in home: No Social History Hx Alcohol Use: Yes (3x week 6 drinks) Hx Tobacco Use: No Hx Substance Use: No Hx of Substance Use Treatment: No Allergies-Medications (Allergen,Severity, Reaction): Coded Allergies: No Known Allergies (Verified , 04/22/17) Reported Meds & Prescriptions Reported Meds & Active Scripts Active Metronidazole 500 Mg Tab 500 Mg PO BID 7 Days Reported Klonopin (Clonazepam) 1 Mg Tab 1 Mg PO BID Review of Systems Except as stated in HPI: all other systems reviewed are Neg Mental Status Examination Appearance: Appropriate Consciousness: Alert Orientation: x4 Motor Activity: Normal gait Speech: Unremarkable Language: Adequate Fund of Knowledge: Adequate Attention and Concentration: Adequate Memory: Unremarkable Mood: Appropriate Affect: Appropriate Thought Process & Associations: Intact Thought Content: Appropriate Hallucination Type: None Delusion Type: None Suicidal Ideation: No Suicidal Plan: No Suicidal Intention: No Homicidal Ideation: No Homicidal Plan: No Homicidal Intention: No Insight: Adequate Judgment: Adequate MDM Medical Decision Making Medical Record Reviewed: Yes Assessment/Plan Patient was interviewed at bedside, medical record reviewed and case discussed with nurse, Dmia. Patient is verbally toney for safety and she is competent to do so. This physician does not feel she meets criteria for involuntary psychiatric hospitalization. She may continue to be treated on an outpatient basis. Orders Orders Diphenhydramine Inj (Benadryl Inj) (07/01/17 12:45) Methylprednisolone So Succ Inj (Solumedr (07/01/17 12:45) Famotidine Inj (Pepcid Inj) (07/01/17 12:45) Sodium Chloride 0.9% Flush (Ns Flush) (07/01/17 12:45) Hand, Complete (Emx3rly) (07/01/17 12:46) Ice/Cold Pack (07/01/17 12:46) Ibuprofen (Motrin) (07/01/17 13:00) Call Poison Control (07/01/17 13:22) Diet Regular Basic (07/01/17 Dinner) Ed Discharge Order (07/02/17 09:23) Results Vital Signs Date Time Temp Pulse Resp B/P (MAP) Pulse Ox O2 Delivery O2 Flow Rate FiO2 07/02/17 09:49 07/02/17 06:14 73 18 123/80 (94) 100 Room Air 07/01/17 17:26 81 18 132/77 (95) 100 Room Air 07/01/17 12:58 92 21 131/77 (95) 95 Room Air Laboratory Tests Test 07/01/17 13:15 07/01/17 15:20 White Blood Count 8.9 Red Blood Count 4.40 Hemoglobin 12.9 Hematocrit 39.3 Mean Corpuscular Volume 89.2 Mean Corpuscular Hemoglobin 29.3 Mean Corpuscular Hemoglobin Concent 32.9 Red Cell Distribution Width 13.5 Platelet Count 250 Mean Platelet Volume 7.6 Neutrophils (%) (Auto) 75.7 Lymphocytes (%) (Auto) 17.4 Monocytes (%) (Auto) 6.3 Eosinophils (%) (Auto) 0.4 Basophils (%) (Auto) 0.2 Neutrophils # (Auto) 6.7 Lymphocytes # (Auto) 1.5 Monocytes # (Auto) 0.6 Eosinophils # (Auto) 0.0 Basophils # (Auto) 0.0 CBC Comment DIFF FINAL Differential Comment Blood Urea Nitrogen 11 Creatinine 0.76 Random Glucose 98 Total Protein 8.6 Albumin 3.8 Calcium Level 9.1 Alkaline Phosphatase 64 Aspartate Amino Transf (AST/SGOT) 19 Alanine Aminotransferase (ALT/SGPT) 40 Total Bilirubin 0.2 Sodium Level 138 Potassium Level 4.1 Chloride Level 106 Carbon Dioxide Level 23.9 Anion Gap 8 Estimat Glomerular Filtration Rate 90 Salicylates Level LESS THAN 1.7 Acetaminophen Level LESS THAN 2.0 Ethyl Alcohol Level LESS THAN 3 Urine Opiates Screen NEG Urine Barbiturates Screen NEG Urine Amphetamines Screen NEG Urine Benzodiazepines Screen POS Urine Cocaine Screen NEG Urine Cannabinoids Screen NEG Diagnosis Primary Impression: Benzodiazepine abuse Additional Impressions: Cephalalgia Contusion of right hand, initial encounter Referrals: [facility] (Out patient) as needed [facility] needed Mental Health and Substance Abuse Departure Forms: Tests/Procedures Patient Instructions: General Instructions, Benzodiazepine Abuse (ED), Medical Clearance for Psychiatric Care (ED) Additional Instructions: DX: Benzodiadapine Abuse Please return to ED if symptoms worsen. Disposition: 01 DISCHARGE HOME Condition: Stable Problem Qualifiers David Hernandez MD Jul 02, 2017 12:30
--- NOTE | 2017-07-03 00:06 | EKG ---
Date Performed: 07/01/2017 Time Performed: 12:26:19 PTAGE: 27 years EKG: Sinus rhythm WITH SINUS ARRHYTHMIA NORMAL ECG Compared to the PREVIOUS TRACING from 04/22/17, no significant change DOCTOR: Jacoby Mcgill Interpretating Date/Time 07/03/2017 00:04:54
== END 2017-07-02 10:49 | disposition home or self-care (01) ==
LOC: NEPC 12:09 → NEPJ 07-02 10:49
DX: Z02.89 Encounter for other administrative examinations (principal); F13.10 Sedative, hypnotic or anxiolytic abuse, uncomplicated; R51 Headache; S60.221A Contusion of right hand, initial encounter; I49.9 Cardiac arrhythmia, unspecified; Z79.899 Other long term (current) drug therapy; Z86.59 Personal history of other mental and behavioral disorders; Z86.79 Personal history of other diseases of the circulatory system; Z87.19 Personal history of other diseases of the digestive system; W22.09XA Striking against other stationary object, initial encounter
CPT/HCPCS: 73130; 80053; 80307; 85025; 93005; 99284

== ENCOUNTER 2017-08-10 06:47 | Emergency (ER) | payer SELFPAY ==
[~2017-08-10] VITALS: Ht 160 cm; Wt 97.0 kg
[~2017-08-10 06:47] MED LIST changes: +METR1TAB76 PO; -METR500T10 PO
[2017-08-10 06:48] VITALS: BP 147/86; PULSE 110; RESP 18; TEMP 98.1; O2SAT 95
[2017-08-10] MEDS ORDERED: DIAZ10 PO (06:58)
--- NOTE | 2017-08-10 07:12 | PD ---
HPI Chief Complaint: Anxiety Time Seen by Provider: 07:08 Travel History International Travel<30 days: No Contact w/Intl Traveler<30days: No Traveled to known affect area: No History of Present Illness HPI Patient presents with medication concerns. States she has a history of anxiety previously on Klonopin long-term, recently changed to Valium. States she took 10 mg of Valium approximate 6 AM and started to get nervous how she would tolerate this new medication. Denies any chest pain shortness of breath urinary or bowel symptoms. Denies any nausea vomiting diarrhea or fever. PFSH Past Medical History Anemia: Yes (BORDERLINE) Bipolar Disorder: Yes Anxiety: Yes Depression: Yes Heart Rhythm Problems: Yes (Tachycardia) Diminished Hearing: No Psychiatric: Yes (PTSD) Immunizations Current: No Ulcer: Yes Tetanus Vaccination: > 5 Years Influenza Vaccination: No ?: Not LMP: 08/08/17 : 0 Past Surgical History Other Surgery: Yes (Right wrist) Family History Family Hypercholesterolemia: Yes (FATHER) Social History Alcohol Use: No Tobacco Use: No Substance Use: No Allergies-Medications (Allergen,Severity, Reaction): Coded Allergies: No Known Allergies (Verified Adverse Reaction, Unknown, 08/10/17) Reported Meds & Prescriptions Reported Meds & Active Scripts Active Reported Valium (Diazepam) 10 Mg Tab 10 Mg PO TID PRN Klonopin (Clonazepam) 1 Mg Tab 1 Mg PO BID Review of Systems General / Constitutional: No: Fever Eyes: No: Visual changes HENT: No: Headaches Cardiovascular: No: Chest Pain or Discomfort Respiratory: No: Shortness of Breath Gastrointestinal: No: Abdominal Pain Genitourinary: No: Dysuria Musculoskeletal: No: Pain Skin: No Rash Neurologic: No: Weakness Psychiatric: No: Depression Endocrine: No: Polydipsia Hematologic/Lymphatic: No: Easy Bruising Physical Exam Narrative GENERAL: Well-nourished, well-developed patient. Appears anxious SKIN: Focused skin assessment warm/dry. HEAD: Normocephalic. EYES: No scleral icterus. No injection or drainage. NECK: Supple, trachea midline. No JVD or lymphadenopathy. CARDIOVASCULAR: Regular rate and rhythm without murmurs, gallops, or rubs. RESPIRATORY: Breath sounds equal bilaterally. No accessory muscle use. GASTROINTESTINAL: Abdomen soft, non-tender, nondistended. MUSCULOSKELETAL: No cyanosis, or edema. BACK: Nontender without obvious deformity. No CVA tenderness. Data Data Last Documented VS Vital Signs Date Time Temp Pulse Resp B/P (MAP) Pulse Ox O2 Delivery O2 Flow Rate FiO2 08/10/17 08:29 18 08/10/17 07:55 103 134/79 (97) 97 Room Air 08/10/17 06:48 98.1 Orders Orders Ibuprofen (Motrin) (08/10/17 07:30) MDM Medical Decision Making Medical Screen Exam Complete: Yes Emergency Medical Condition: Yes Differential Diagnosis Anxiety, malingering, medication reaction Narrative Course Assessment and plan discussed with patient at bedside. Patient was observed with improvement of blood pressure and pulse. Feeling much improved. Diagnosis Primary Impression: Benzodiazepine abuse Patient Instructions: General Instructions Additional Instructions: Encouraged to follow-up with PCP. Encouraged to return emergently onset of new symptoms. Recommended dosing of Valium at 5 mg rather than 10. Med/Other Pt SpecificInfo: No Meds Exist/No RX given Disposition: 01 DISCHARGE HOME Condition: Good Haroldo Schmid MD Aug 10, 2017 07:12
[2017-08-10] MEDS ORDERED: IBUPROFEN 800 MG TAB PO ONE (07:30)
[2017-08-10 07:55] VITALS: BP 134/79; PULSE 103; RESP 18; O2SAT 97
[2017-08-10 08:47] VITALS: BP 116/70; PULSE 92; RESP 18; O2SAT 97
== END 2017-08-10 08:59 | disposition home or self-care (01) ==
LOC: PHED 06:47
DX: F13.10 Sedative, hypnotic or anxiolytic abuse, uncomplicated (principal)
CPT/HCPCS: 99283